=== PATIENT | female | born 1950 | race Caucasian/White ===

== ENCOUNTER → 2018-07-07 | Outpatient (CLI) | payer MEDICARE ==
--- NOTE | 2018-07-07 13:23 | XR ---
EXAMINATION TYPE: XR shoulder complete RT DATE OF EXAM: 07/07/2018 CLINICAL HISTORY: pain TECHNIQUE: Three views of the right shoulder are obtained. COMPARISON: None FINDINGS: There is no acute fracture/dislocation evident. The acromioclavicular and glenohumeral nola int spaces appear mildly narrowed.. The visualized ribs are intact and unremarkable. IMPRESSION: 1. There is no acute fracture or dislocation. ICD 10 NO FRACTURE, INITIAL EVALUATION
== END | disposition home or self-care (01) ==
LOC: RAD 13:00
PROVIDERS: ATTEND Family Medicine
DX: M25.511 Pain in right shoulder (principal)

== ENCOUNTER → 2018-08-05 | Outpatient (CLI) | payer MEDICARE ==
[2018-08-05 19:00] LABS: Albumin 4.5 g/dL (3.80-4.90); Albumin/Globulin Ratio 2.05 (1.60-3.17); Anion Gap 9.1 mmol/L (4.00-12.00); Calcium 9.6 mg/dL (8.7-10.3); Carbon Dioxide 27.9 mmol/L (21.6-31.8); Globulin 2.2 g/dL (1.6-3.3); Potassium 4.3 mmol/L (3.5-5.5); Total Bilirubin 0.5 mg/dL (0.2-1.2); Total Protein 6.7 g/dL (6.2-8.2)
[2018-08-05 19:07] LABS: T4, Free (Free Thyroxine) 1.5 ng/dL (0.80-1.80)
== END ==
LOC: LABWHC1 12:32
PROVIDERS: ATTEND Internal Medicine Endocrinology, Diabetes & Metabolism
DX: M81.0 Age-related osteoporosis without current pathological fracture (principal); E03.9 Hypothyroidism, unspecified
CPT/HCPCS: 36415; 80053; 82306; 84439; 84443

== ENCOUNTER → 2019-02-03 | Outpatient (CLI) | payer MEDICARE ==
[2019-02-03 18:21] LABS: Calcium 9.5 mg/dL (8.7-10.3)
[2019-02-03 18:35] LABS: T4, Free (Free Thyroxine) 1.4 ng/dL (0.80-1.80)
== END ==
LOC: LABWHC1 13:09
PROVIDERS: ATTEND Internal Medicine Endocrinology, Diabetes & Metabolism
DX: E03.9 Hypothyroidism, unspecified (principal); M81.0 Age-related osteoporosis without current pathological fracture
CPT/HCPCS: 36415; 82306; 82310; 84439; 84443

== ENCOUNTER → 2019-08-16 | Outpatient (CLI) | payer MEDICARE ==
[2019-08-16 19:27] LABS: African American GFR (CKD) 76.1 (60.0-200.0); Albumin 4.3 g/dL (3.80-4.90); Albumin/Globulin Ratio 1.95 (1.60-3.17); Anion Gap 8.4 mmol/L (4.00-12.00); BUN/Creat Ratio 28.89 Ratio (12.00-20.00); Calcium 10.3 mg/dL (8.7-10.3); Carbon Dioxide 28.6 mmol/L (21.6-31.8); Globulin 2.2 g/dL (1.6-3.3); Non-African American GFR(CKD) 65.7 (60.0-200.0); Potassium 4.3 mmol/L (3.5-5.5); Total Bilirubin 0.6 mg/dL (0.2-1.2); Total Protein 6.5 g/dL (6.2-8.2)
[2019-08-16 19:34] LABS: T4, Free (Free Thyroxine) 1.7 ng/dL (0.80-1.80)
== END | disposition home or self-care (01) ==
LOC: LABWHC1 11:44
PROVIDERS: ATTEND Internal Medicine Endocrinology, Diabetes & Metabolism
DX: E03.9 Hypothyroidism, unspecified (principal); M81.0 Age-related osteoporosis without current pathological fracture
CPT/HCPCS: 36415; 80053; 84439; 84443

== ENCOUNTER → 2020-02-05 | Outpatient (CLI) | payer MEDICARE ==
--- NOTE | 2020-02-05 08:51 | BD ---
EXAMINATION TYPE: Axial Bone Density DATE OF EXAM: 02/05/2020 COMPARISON: NONE CLINICAL HISTORY: osteoporosi Height: 5'5 Weight: 161 FRAX RISK QUESTIONS: Family History (Parent hip fracture): Y History of Fracture in Adulthood: Y Secondary Osteoporosis: RISK FACTORS HISTORY OF: Family History of Osteoporosis: y Postmenopausal woman: y Lost more than 2 inches in height since high school: y MEDICATIONS: Thyroid Medications: Which medication: synthroid generic How Lon-35 yrs Osteoporosis Medications: Which medication: fosamax , 3 calcium supplement ,vitamin d How Lon-3 yrs Additional Medications: afib Additional History: EXAM MEASUREMENTS: Bone mineral densitometry was performed using the [employer] System. Bone mineral density as measured about the Lumbar spine is: T Score Values are as follows ----- L1-L4(G/cm2) 1.366 ----- L2: 2.5 ----- L3: 1.3 ----- L4: 1.6 ----- L1-L4: 1.5 Bone mineral density about the R hip (g/cm2): 0.691 Bone mineral density about the L hip (g/cm2): 0.796 T Score values are as follows: -----R Neck: -2.5 -----L Neck: -1.7 -----R Total: -2.4 -----L Total: -1.1 IMPRESSION: Osteopenia (T Score between -2.5 and -1). There is slightly increased risk of fracture and the patient may be considered for treatment. Re-Screen 2-5 years. NOTE: T-SCORE=SD OF THE YOUNG ADULT MEAN.
[2020-02-05 09:28] LABS: Albumin 4.3 g/dL (3.5-5.0); Calcium 9.4 mg/dL (8.4-10.2); Potassium 4.4 mmol/L (3.5-5.1); Total Bilirubin 0.7 mg/dL (0.2-1.3)
[2020-02-05 09:44] LABS: T4, Free (Free Thyroxine) 1.59 ng/dL (0.78-2.19)
== END | disposition home or self-care (01) ==
LOC: RADBDWWP 07:22
PROVIDERS: ATTEND Internal Medicine Endocrinology, Diabetes & Metabolism
DX: M85.80 Other specified disorders of bone density and structure, unspecified site (principal); Z00.00 Encounter for general adult medical examination without abnormal findings; E83.52 Hypercalcemia; M62.838 Other muscle spasm; E03.9 Hypothyroidism, unspecified; M81.0 Age-related osteoporosis without current pathological fracture
CPT/HCPCS: 36415; 77080; 80053; 80061; 82306; 84439; 84443

== ENCOUNTER → 2020-04-23 | Outpatient (CLI) | payer MEDICARE ==
--- NOTE | 2020-04-24 10:45 | MM ---
Reason for exam: screening (asymptomatic). History: Patient is postmenopausal. Excisional biopsy of the left breast. Physical Findings: A clinical breast exam by your physician is recommended on an annual basis and results should be correlated with mammographic findings. MG 3D Screening Mammo W/Cad Bilateral CC and MLO view(s) were taken. Prior study comparison: March 07, 2018, mammogram, performed at [facility]. March 02, 2017, mammogram, performed at [facility]. January 23, 2016, mammogram, performed at [facility]. The breast tissue is heterogeneously dense. This may lower the sensitivity of mammography. There is chronic nodularity bilaterally. There is no dominant lesion. No significant changes when compared with prior studies. ASSESSMENT: Benign, BI-RAD 2 RECOMMENDATION: Routine screening mammogram of both breasts in 1 year.
== END | disposition home or self-care (01) ==
LOC: RADMAMWWP 10:54
PROVIDERS: ATTEND Family Medicine
DX: Z12.31 Encounter for screening mammogram for malignant neoplasm of breast (principal)
CPT/HCPCS: 77063; 77067

== ENCOUNTER → 2020-08-20 | Outpatient (CLI) | payer MEDICARE ==
[2020-08-20 16:58] LABS: HCT 42.1 % (37.2-46.3); HGB 13.7 g/dL (12.0-15.0); MCH 31.7 pg (27.0-32.0); MCHC 32.5 g/dL (32.0-37.0); MCV 97.5 fL (80.0-97.0); Mean Platelet Volume 9.7 fL (9.5-12.2); Platelet Count 291 X 10*3/uL (140-440); RBC 4.32 X 10*6/uL (4.10-5.20); RDW 12.1 % (11.5-14.5); WBC 6.05 X 10*3/uL (4.50-10.00)
[2020-08-20 17:10] LABS: African American GFR (CKD) 87.2 (60.0-200.0); Albumin 4.2 g/dL (3.80-4.90); Albumin/Globulin Ratio 1.91 (1.60-3.17); Anion Gap 7.7 mmol/L (4.00-12.00); Calcium 9.4 mg/dL (8.7-10.3); Carbon Dioxide 26.3 mmol/L (21.6-31.8); Globulin 2.2 g/dL (1.6-3.3); Non-African American GFR(CKD) 75.2 (60.0-200.0); Potassium 4.7 mmol/L (3.5-5.5); Total Bilirubin 0.7 mg/dL (0.3-1.2); Total Protein 6.4 g/dL (6.2-8.2)
[2020-08-20 17:17] LABS: T4, Free (Free Thyroxine) 1.6 ng/dL (0.80-1.80)
== END | disposition home or self-care (01) ==
LOC: LABWHC1 09:10
PROVIDERS: ATTEND Orthopaedic Surgery
DX: Z01.812 Encounter for preprocedural laboratory examination (principal); M17.11 Unilateral primary osteoarthritis, right knee; M21.061 Valgus deformity, not elsewhere classified, right knee; E03.9 Hypothyroidism, unspecified; M81.0 Age-related osteoporosis without current pathological fracture
CPT/HCPCS: 36415; 80053; 82306; 84439; 84443; 85027; 87070

== ENCOUNTER → 2021-02-17 | Outpatient (CLI) | payer MEDICARE ==
[2021-02-17 15:21] LABS: African American GFR (CKD) 83.3 (60.0-200.0); Albumin 4.7 g/dL (3.8-4.9); Albumin/Globulin Ratio 2.03 (1.60-3.17); Anion Gap 10.6 mmol/L (10.00-18.00); BUN/Creat Ratio 21.91 Ratio (12.00-20.00); Blood Urea Nitrogen 18.1 mg/dL (9.0-27.0); Calcium 10.4 mg/dL (8.7-10.3); Carbon Dioxide 27.4 mmol/L (20.0-27.5); Globulin 2.3 g/dL (1.6-3.3); Non-African American GFR(CKD) 71.9 (60.0-200.0); Potassium 4.2 mmol/L (3.5-5.5); T4, Free (Free Thyroxine) 1.68 ng/dL (0.800-1.800); Total Bilirubin 0.5 mg/dL (0.30-1.20)
== END | disposition home or self-care (01) ==
LOC: LABWHC1 09:54
PROVIDERS: ATTEND Internal Medicine Endocrinology, Diabetes & Metabolism
DX: M81.0 Age-related osteoporosis without current pathological fracture (principal); E03.9 Hypothyroidism, unspecified
CPT/HCPCS: 36415; 80053; 82306; 83970; 84439; 84443

== ENCOUNTER → 2021-03-20 | Outpatient (CLI) | payer MEDICARE ==
[~2021-03-20] MED LIST: DENOSUMAB 60 MG/ML 1 ML SYRINGE SQ NR
[2021-03-20 10:44] VITALS: BP 150/83; PULSE 59; RESP 15; TEMP 97.6
== END | disposition home or self-care (01) ==
LOC: PROCWHC3 10:29
PROVIDERS: ATTEND Internal Medicine Endocrinology, Diabetes & Metabolism
DX: M81.0 Age-related osteoporosis without current pathological fracture (principal)
CPT/HCPCS: 96372; J0897

== ENCOUNTER → 2021-07-24 | Outpatient (CLI) | payer MEDICARE | END | disposition home or self-care (01) | LOC: RADMAMWWP 16:46 | PROVIDERS: ATTEND Family Medicine | DX: Z12.31 Encounter for screening mammogram for malignant neoplasm of breast (principal) | CPT/HCPCS: 77063; 77067 ==

== ENCOUNTER → 2021-08-27 | Outpatient (CLI) | payer MEDICARE ==
[2021-08-27 16:07] LABS: African American GFR (CKD) 68.5 (60.0-200.0); Albumin 4.6 g/dL (3.8-4.9); Albumin/Globulin Ratio 2.01 (1.60-3.17); Anion Gap 10.7 mmol/L (10.00-18.00); BUN/Creat Ratio 27.81 Ratio (12.00-20.00); Calcium 9.8 mg/dL (8.7-10.3); Carbon Dioxide 26.2 mmol/L (20.0-27.5); Globulin 2.3 g/dL (1.6-3.3); Non-African American GFR(CKD) 59.1 (60.0-200.0); Potassium 4.3 mmol/L (3.5-5.5); T4, Free (Free Thyroxine) 1.67 ng/dL (0.800-1.800); Total Bilirubin 0.4 mg/dL (0.30-1.20); Total Protein 6.9 g/dL (6.2-8.2)
== END | disposition home or self-care (01) ==
LOC: LABWHC1 09:35
PROVIDERS: ATTEND Internal Medicine Endocrinology, Diabetes & Metabolism
DX: M81.0 Age-related osteoporosis without current pathological fracture (principal); E03.9 Hypothyroidism, unspecified
CPT/HCPCS: 36415; 80053; 82306; 84439; 84443

== ENCOUNTER → 2021-10-02 | Outpatient (CLI) | payer MEDICARE ==
[2021-10-02 10:38] VITALS: BP 137/82; PULSE 69; RESP 16; TEMP 97.9
== END | disposition home or self-care (01) ==
LOC: PROCWHC3 10:23
PROVIDERS: ATTEND Internal Medicine Endocrinology, Diabetes & Metabolism
DX: M81.0 Age-related osteoporosis without current pathological fracture (principal)
CPT/HCPCS: 96372; J0897

== ENCOUNTER → 2022-02-05 | Outpatient (CLI) | payer MEDICARE ==
--- NOTE | 2022-02-05 15:15 | BD ---
EXAMINATION TYPE: Axial Bone Density DATE OF EXAM: 02/05/2022 COMPARISON: 02.05.2020 CLINICAL HISTORY: 71 years year old Female. ICD-10 CODE: M81.0 AGE-RELATED OSTEOPOROSIS W/O CURRENT PATHOLO Height: 64 Weight: 143 FRAX RISK QUESTIONS: Family History (Parent hip fracture): YES History of Fracture in Adulthood: YES RISK FACTORS HISTORY OF: HX OF TOE FX ONLY AT 50YRS OLD Family History of Osteoporosis: YES Active: YES Postmenopausal woman: YES Lost more than 2 inches in height since high school: YES Hyperparathyroidism: YES, SURGICAL REMOVAL OF 2 OF THEM Adrenal Insufficiency: NO MEDICATIONS: Thyroid Medications: YES, SYNTHROID PRODUCT...35 YRS Osteoporosis Medications: FOSAMAX, 4 YRS STOPPED 2 YRS AGO, NOW ON PROLIA Additional Medications: FOR A-FIB, CALCIUM AND VIT D Additional History: HX OF RT KNEE REPLACEMENT, 2020, A-FIB, OSTEOPOROSIS, THYROID EXAM MEASUREMENTS: Bone mineral densitometry was performed using the [employer] System. Bone mineral density as measured about the Lumbar spine is: ----- L1-L4(G/cm2): 1.226 T Score Values are as follows: ----- L1: -0.5 ----- L2: -1.6 ----- L3: 0.6 ----- L4: 1.6 ----- L1-L4: 0.4 Bone mineral density has: Decreased -10.2% since study of: 02.05.2020 Bone mineral density about the R hip (g/cm2): 0.706 Bone mineral density about the L hip (g/cm2): 0.890 T Score values are as follows: -----R Neck: -2.6 -----L Neck: -1.9 -----R Total: -2.4 -----L Total: -0.9 Bone mineral density has: Increased 1.7% since study of: 02.05.2020 FRAX%s: The graph provided illustrates a 19.3% chance for a major osteoporotic fx and a 9.8% chance f or the hips probability for fx in 10 years time. IMPRESSION: Osteoporosis (T Score less than -2.5). There is increased fracture risk and therapy is usually indicated based on age. Re-Screen 1-2 years. NOTE: T-SCORE=SD OF THE YOUNG ADULT MEAN.
== END | disposition home or self-care (01) ==
LOC: RADBDWWP 09:15
PROVIDERS: ATTEND Internal Medicine Endocrinology, Diabetes & Metabolism
DX: M81.0 Age-related osteoporosis without current pathological fracture (principal)
CPT/HCPCS: 77080

== ENCOUNTER → 2022-02-17 | Outpatient (CLI) | payer MEDICARE ==
[2022-02-17 14:58] LABS: African American GFR (CKD) 81.6 (60.0-200.0); Albumin 4.5 g/dL (3.8-4.9); Albumin/Globulin Ratio 1.78 (1.60-3.17); BUN/Creat Ratio 26.11 Ratio (12.00-20.00); Blood Urea Nitrogen 21.8 mg/dL (9.0-27.0); Calcium 9.7 mg/dL (8.7-10.3); Carbon Dioxide 25.1 mmol/L (20.0-27.5); Globulin 2.5 g/dL (1.6-3.3); Non-African American GFR(CKD) 70.4 (60.0-200.0); Potassium 4.1 mmol/L (3.5-5.5); T4, Free (Free Thyroxine) 1.81 ng/dL (0.800-1.800); Total Bilirubin 0.5 mg/dL (0.30-1.20)
== END | disposition home or self-care (01) ==
LOC: LABWHC1 10:09
PROVIDERS: ATTEND Internal Medicine Endocrinology, Diabetes & Metabolism
DX: M81.0 Age-related osteoporosis without current pathological fracture (principal); E03.9 Hypothyroidism, unspecified
CPT/HCPCS: 36415; 80053; 82306; 84439; 84443

== ENCOUNTER → 2022-04-06 | Outpatient (CLI) | payer MEDICARE ==
[~2022-04-06] MED LIST changes: -DENOSUMAB 60 MG/ML 1 ML SYRINGE SQ NR; +DENOSUMAB 60 MG/ML 1 ML SYRINGE SQ ONE
[2022-04-06 11:18] VITALS: BP 144/82; PULSE 63; RESP 16; TEMP 97.8
== END ==
LOC: PROCWHC3 10:34
PROVIDERS: ATTEND Internal Medicine Endocrinology, Diabetes & Metabolism
DX: M81.0 Age-related osteoporosis without current pathological fracture (principal); Z88.1 Allergy status to other antibiotic agents; Z88.2 Allergy status to sulfonamides
CPT/HCPCS: 96372; J0897

== ENCOUNTER → 2022-07-30 | Outpatient (CLI) | payer MEDICARE ==
--- NOTE | 2022-07-31 08:47 | MM ---
Reason for Exam: Screening (asymptomatic). Last screening mammogram was performed 12 month(s) ago. Patient History: Menarche at age 12. First Full-Term at age 25. Postmenopausal. Excisional Biopsy on the Left side. Risk Values: Monika 5 year model risk: 2.3%. NCI Lifetime model risk: 6.3%. Prior Study Comparison: 03/07/2018 Screening Mammogram, [facility]. 04/23/2020 Bilateral Screening Mammogram, [facility]. 07/24/2021 Bilateral Screening Mammogram, [facility]. Tissue Density: The breast tissue is extremely dense which could obscure a lesion on mammography. Findings: Analyzed By CAD. Redemonstrated nodular configuration to the patient's bilateral breast tissue. There is no suspicious group of microcalcifications or new suspicious mass in either breast. Overall Assessment: Benign, BI-RAD 2 Management: Screening Mammogram of both breasts in 1 year. Given the extremely dense breast tissue, consideration can be given to supplementary screening with breast ultrasound. Patient should continue monthly self-breast exams. A clinical breast exam by your physician is recommended on an annual basis. This exam should not preclude additional follow-up of suspicious palpable abnormalities. Note on Monika scores and lifetime risk: 1. A Monika score greater than 3% is considered moderate risk. If this is the case, consider specialist referral to assess eligibility for a risk reducing agent. 2. If overall lifetime risk for the development of breast cancer is 20% or higher, the patient may qualify for future screening with alternating mammogram and breast MRI. Electronically signed and approved by: Wagner Foy M.D. Radiologist
== END | disposition home or self-care (01) ==
LOC: RADMAMWWP 13:03
PROVIDERS: ATTEND Family Medicine
DX: Z12.31 Encounter for screening mammogram for malignant neoplasm of breast (principal); Z78.0 Asymptomatic menopausal state
CPT/HCPCS: 77063; 77067

== ENCOUNTER → 2022-08-25 | Outpatient (CLI) | payer MEDICARE ==
[2022-08-25 16:10] LABS: ALT 21 U/L; AST 26 U/L; Albumin 4.6 d/dL; Albumin/Globulin Ratio 2.19 Ratio; Alkaline Phosphatase 45 U/L; Blood Urea Nitrogen 25.6 mg/dL; Calcium 10.4 mg/dL; Carbon Dioxide 28.7 mmol/L; Chloride 103 mmol/L; Globulin 2.1 d/dL; Glucose 92 mg/dL; Potassium 4.8 mmol/L; Sodium 140 mmol/L; Total Bilirubin 0.5 mg/dL; Total Protein 6.7 d/dL
== END | disposition home or self-care (01) ==
LOC: LABWHC1 08:45
PROVIDERS: ATTEND Internal Medicine Endocrinology, Diabetes & Metabolism
DX: E03.9 Hypothyroidism, unspecified (principal); M81.0 Age-related osteoporosis without current pathological fracture
CPT/HCPCS: 36415; 80053; 82306; 84439; 84443

== ENCOUNTER → 2023-01-18 | Outpatient (CLI) | payer MEDICARE ==
--- NOTE | 2023-01-18 12:33 | XR ---
EXAMINATION TYPE: XR chest 2V DATE OF EXAM: 01/18/2023 10:24 AM CLINICAL INDICATION:Female, 72 years old with history of R09.02 hypoxia; [facility] COMPARISON: Chest radiographs from 01/18/2023 TECHNIQUE: XR chest 2V Frontal and lateral views of the chest. FINDINGS: Lungs/Pleura: Prominent interstitial lung markings are seen scattered throughout the lungs with zoraida ening of the diaphragm and increased lucency of the lung apices. No evidence of focal consolidation, pneumothorax or pleural effusion. Pulmonary vascularity: Unremarkable. Heart/mediastinum: Cardiomediastinal silhouette is unremarkable. Musculoskeletal: No acute osseous pathology. IMPRESSION: 1. No acute cardiopulmonary disease process. 2. COPD changes.
== END | disposition home or self-care (01) ==
LOC: RADXRMAIN 10:11
PROVIDERS: ATTEND Family Medicine
DX: J44.9 Chronic obstructive pulmonary disease, unspecified (principal); R09.02 Hypoxemia
CPT/HCPCS: 71046

== ENCOUNTER → 2023-02-15 | Outpatient (CLI) | payer MEDICARE ==
[2023-02-15 17:13] LABS: ALT 18 U/L (8-44); AST 22 U/L (13-35); Albumin 4.4 g/dL (3.8-4.9); Alkaline Phosphatase 43 U/L (41-126); BUN/Creat Ratio 30.11 Ratio (12.00-20.00); Blood Urea Nitrogen 27.1 mg/dL (9.0-27.0); Calcium 10.1 mg/dL (8.7-10.3); Carbon Dioxide 26.6 mmol/L (21.6-31.8); Chloride 104 mmol/L (96-109); Globulin 2.1 g/dL (1.6-3.3); Glucose 101 mg/dL (70-110); Potassium 4.3 mmol/L (3.5-5.5); Sodium 142 mmol/L (135-145); T4, Free (Free Thyroxine) 1.95 ng/dL (0.80-1.80); Total Bilirubin 0.4 mg/dL (0.3-1.2); Total Protein 6.5 g/dL (6.2-8.2)
== END | disposition home or self-care (01) ==
LOC: LABWHC1 11:20
PROVIDERS: ATTEND Internal Medicine Endocrinology, Diabetes & Metabolism
DX: E03.9 Hypothyroidism, unspecified (principal); M81.0 Age-related osteoporosis without current pathological fracture
CPT/HCPCS: 36415; 80053; 82306; 84439; 84443

== ENCOUNTER → 2023-04-16 | Outpatient (CLI) | payer MEDICARE ==
[~2023-04-16] MED LIST changes: +DENOSUMAB 60 MG/ML 1 ML SYRINGE SQ NR; -DENOSUMAB 60 MG/ML 1 ML SYRINGE SQ ONE
[2023-04-16 10:27] VITALS: BP 139/80; PULSE 64; RESP 16; TEMP 97.6
== END ==
LOC: PROCWHC3 09:50
PROVIDERS: ATTEND Internal Medicine Endocrinology, Diabetes & Metabolism
DX: M81.0 Age-related osteoporosis without current pathological fracture (principal)
CPT/HCPCS: 96372; J0897

== ENCOUNTER → 2023-08-23 | Outpatient (CLI) | payer MEDICARE ==
[2023-08-23 16:19] LABS: ALT 23 U/L (8-44); AST 23 U/L (13-35); Albumin 4.7 g/dL (3.8-4.9); Albumin/Globulin Ratio 2.04 Ratio (1.60-3.17); Alkaline Phosphatase 51 U/L (41-126); BUN/Creat Ratio 25.38 Ratio (12.00-20.00); Blood Urea Nitrogen 20.3 mg/dL (9.0-27.0); Calcium 10.3 mg/dL (8.7-10.3); Carbon Dioxide 25.5 mmol/L (21.6-31.8); Chloride 102 mmol/L (96-109); Globulin 2.3 g/dL (1.6-3.3); Glucose 88 mg/dL (70-110); Potassium 4.5 mmol/L (3.5-5.5); Sodium 139 mmol/L (135-145); T4, Free (Free Thyroxine) 2.14 ng/dL (0.80-1.80); Total Bilirubin 0.5 mg/dL (0.3-1.2)
== END | disposition home or self-care (01) ==
LOC: LABWHC1 09:16
PROVIDERS: ATTEND Internal Medicine Endocrinology, Diabetes & Metabolism
DX: E03.9 Hypothyroidism, unspecified (principal); M81.0 Age-related osteoporosis without current pathological fracture
CPT/HCPCS: 36415; 80053; 84439; 84443

== ENCOUNTER → 2023-10-01 | Outpatient (CLI) | payer MEDICARE ==
--- NOTE | 2023-10-08 21:42 | MM ---
Reason for Exam: Screening (asymptomatic). Last mammogram was performed 1 year(s) and 2 month(s) ago. Patient History: Menarche at age 12. First Full-Term at age 25. Postmenopausal. Patient has history of breast feeding. Excisional Biopsy on the Left side. Maternal grandmother had breast cancer at or over age 50. Risk Values: Monika 5 year model risk: 2.3%. NCI Lifetime model risk: 5.7%. Prior Study Comparison: 01/23/2016 Screening Mammogram, [facility]. 03/02/2017 Screening Mammogram, [facility]. 03/07/2018 Screening Mammogram, [facility]. 04/23/2020 Bilateral Screening Mammogram, [facility]. 07/24/2021 Bilateral Screening Mammogram, [facility]. 07/30/2022 Bilateral MG 3D screening mammo w/cad, [facility]. Tissue Density: The breasts are heterogeneously dense, which may obscure small masses. Findings: Analyzed By CAD. Extensive nodular appearance to the patient's bilateral breast tissue. One area medially appears more defined. Additional views are recommended here. Also, whole bilateral breast ultrasound recommended given the patient's rest complexity. Overall Assessment: Incomplete: need additional imaging evaluation, BI-RAD 0 Management: Special View Mammogram of the left breast. Diagnostic Breast Ultrasound of both breasts. Whole bilateral breast ultrasounds given the extensive nodular complexity of the breast tissue. Additional view on the left to include 3-D CC rolled. [facility] will attempt to contact patient to return for supplemental views and ultrasound if indicated. Electronically signed and approved by: Wagner Foy M.D. Radiologist
== END | disposition home or self-care (01) ==
LOC: RADMAMWWP 11:28
PROVIDERS: ATTEND Family Medicine
DX: Z12.31 Encounter for screening mammogram for malignant neoplasm of breast (principal); R92.333 Mammographic heterogeneous density, bilateral breasts; Z78.0 Asymptomatic menopausal state; Z80.3 Family history of malignant neoplasm of breast
CPT/HCPCS: 77063; 77067

== ENCOUNTER → 2023-10-13 | Outpatient (CLI) | payer MEDICARE ==
--- NOTE | 2023-10-13 09:40 | USB ---
Reason for Exam: Additional evaluation requested from abnormal screening. Patient History: Menarche at age 12. First Full-Term at age 25. Postmenopausal. Patient has history of breast feeding. Excisional Biopsy on the Left side. Maternal grandmother had breast cancer at or over age 50. Risk Values: Monika 5 year model risk: 2.3%. NCI Lifetime model risk: 5.7%. Technique: Method: Whole Breast Handheld. Prior Study Comparison: 07/24/2021 Bilateral Screening Mammogram, [facility]. 07/30/2022 Bilateral MG 3D screening mammo w/cad, [facility]. 10/01/2023 Bilateral MG 3D screening mammo w/cad, [facility]. Findings: The whole breast of both breasts, the axilla of both breasts and the retroareolar of both breasts were scanned. No solid or cystic masses are identified.. Overall Assessment: Negative, BI-RAD 1 Management: Screening Mammogram of both breasts in 1 year. A clinical breast exam by your physician is recommended on an annual basis and results should be correlated with mammographic findings. This exam should not preclude additional follow-up of suspicious palpable abnormalities. Results were given to the patient verbally at the time of exam. Electronically signed and approved by: Michele Nicole M.D. Radiologis
--- NOTE | 2023-10-13 09:42 | MM ---
Reason for Exam: Additional evaluation requested from abnormal screening. Last screening mammogram was performed less than 1 month ago. Patient History: Menarche at age 12. First Full-Term at age 25. Postmenopausal. Patient has history of breast feeding. Excisional Biopsy on the Left side. Maternal grandmother had breast cancer at or over age 50. Risk Values: Monika 5 year model risk: 2.3%. NCI Lifetime model risk: 5.7%. Prior Study Comparison: 07/24/2021 Bilateral Screening Mammogram, [facility]. 07/30/2022 Bilateral MG 3D screening mammo w/cad, [facility]. 10/01/2023 Bilateral MG 3D screening mammo w/cad, [facility]. Tissue Density: Left: The breasts are extremely dense, which lowers the sensitivity of mammography. Findings: Analyzed By CAD. No persistent suspicious nodular density. Bilateral ultrasound recommended. Overall Assessment: Incomplete: need additional imaging evaluation, BI-RAD 0 Management: Diagnostic Breast Ultrasound of both breasts. . Results were given to the patient verbally at the time of exam. Patient should continue monthly self-breast exams. A clinical breast exam by your physician is recommended on an annual basis. This exam should not preclude additional follow-up of suspicious palpable abnormalities. Note on Monika scores and lifetime risk: 1. A Monika score greater than 3% is considered moderate risk. If this is the case, consider specialist referral to assess eligibility for a risk reducing agent. 2. If overall lifetime risk for the development of breast cancer is 20% or higher, the patient may qualify for future screening with alternating mammogram and breast MRI. Electronically signed and approved by: Michele Nicole M.D. Radiologis
== END | disposition home or self-care (01) ==
LOC: RADMAMWWP 08:25
PROVIDERS: ATTEND Family Medicine
DX: R92.8 Other abnormal and inconclusive findings on diagnostic imaging of breast (principal); R92.342 Mammographic extreme density, left breast; Z78.0 Asymptomatic menopausal state; Z80.3 Family history of malignant neoplasm of breast
CPT/HCPCS: 77065; 76641; G0279; 77061

== ENCOUNTER → 2024-02-07 | Outpatient (CLI) | payer MEDICARE ==
[2024-02-07 11:55] LABS: ALT 24 U/L (4-34); AST 33 U/L (14-36); African American GFR (CKD) >90 (>60 ml/min/1.73 sqM); Albumin 4.5 g/dL (3.5-5.0); Alkaline Phosphatase 61 U/L (38-126); Anion Gap 5 mmol/L; Blood Urea Nitrogen 24 mg/dL (7-17); Calcium 10.2 mg/dL (8.4-10.2); Carbon Dioxide 30 mmol/L (22-30); Chloride 102 mmol/L (98-107); Glucose 91 mg/dL (74-99); Non-African American GFR(CKD) 79 (>60 ml/min/1.73 sqM); Potassium 4.3 mmol/L (3.5-5.1); Sodium 137 mmol/L (137-145); Total Bilirubin 0.7 mg/dL (0.2-1.3); Total Protein 7.1 g/dL (6.3-8.2)
--- NOTE | 2024-02-07 12:25 | BD ---
EXAMINATION TYPE: Axial Bone Density DATE OF EXAM: 02/07/2024 CLINICAL HISTORY: 73 years old Female. ICD-10 CODE: M81.0 AGE-RELATED OSTEOPOROSIS W/O CURRENT PATHO LO , Additional History: Height: 63.7 in Weight: 149 lbs FRAX RISK QUESTIONS: Family History (Parent hip fracture): yes mother MEDICATIONS: Thyroid Medications: yes Which medication: Levothyroxine How Lon+ years Osteoporosis Medications: yes Which medication: Prolia fosamax How Lon years EXAM MEASUREMENTS: Bone mineral densitometry was performed using the [employer] System. Bone mineral density as measured about the Lumbar spine is: ----- L1-L4(G/cm2): 1.433 T Score Values are as follows: ----- L1: 1.3 ----- L2: 1.9 ----- L3: 2.3 ----- L4: 2.6 ----- L1-L4: 2.1 Z Score Values are as follows: ----- L1: 1.3 ----- L2: 1.9 ----- L3: 2.3 ----- L4: 2.6 ----- L1-L4: 2.1 Bone mineral density has: Increased 16.9% since study of: 02/05/2022 Bone mineral density about the R hip (g/cm2): 0.725 Bone mineral density about the L hip (g/cm2): 0.898 T Score values are as follows: -----R Neck: -2.4 -----L Neck: -1.8 -----R Total: -2.2 -----L Total: -0.9 Z Score values are as follows: -----R Neck: -0.6 -----L Neck: 0.0 -----R Total: -0.7 -----L Total: 0.7 Bone mineral density has: Increased 1.8% since study of: 02/05/2022 FRAX%s: The graph provided illustrates a 26.8% chance for a major osteoporotic fx and a 14.4% chance for the hips probability for fx in 10 years time. IMPRESSION: Normal (Values between +1 and -1 indicate normal bone mass). Consider repeating this study in 5 year s or sooner if there is some new clinical indication. NOTE: T-SCORE=SD OF THE YOUNG ADULT MEAN. [facility], , 02/07/2024 12:23 PM
[2024-02-07 13:01] LABS: T4, Free (Free Thyroxine) 1.87 ng/dL (0.78-2.19)
== END | disposition home or self-care (01) ==
LOC: RADBDWWP 09:52
PROVIDERS: ATTEND Internal Medicine Endocrinology, Diabetes & Metabolism
DX: M81.0 Age-related osteoporosis without current pathological fracture (principal); M85.89 Other specified disorders of bone density and structure, multiple sites; Z78.0 Asymptomatic menopausal state
CPT/HCPCS: 77080; 80053; 82306; 84439; 84443

== ENCOUNTER → 2024-07-25 | Outpatient (CLI) | payer MEDICARE ==
[2024-07-25] MEDS: DENOSUMAB 60 MG/ML 1 ML SYRINGE SQ NR (10:50)
[2024-07-25 11:01] VITALS: BP 141/84; PULSE 80; RESP 16; TEMP 97.9
== END ==
LOC: PROCWHC3 10:42
PROVIDERS: ATTEND Internal Medicine Endocrinology, Diabetes & Metabolism
DX: M81.0 Age-related osteoporosis without current pathological fracture (principal)
CPT/HCPCS: 96372; J0897